=== PATIENT | female | born 1990 | race American Indian/Alaskan Native ===

== ENCOUNTER 2020-07-13 14:36 | Emergency (ER) | payer SELFPAY ==
[2020-07-13 14:52] VITALS: BP 118/73
[2020-07-13 15:39] LABS: Hematocrit 39.8 % (30.3-42.9); Hemoglobin 13.4 gm/dl (10.1-14.3); Mean Corpuscular HGB Conc 34 % (30-34); Mean Corpuscular Volume 97 fl (79-97); Platelet Count 172 K/mm3 (140-440); Red Blood Count 4.12 M/mm3 (3.65-5.03); Red Cell Distribution Width 13.5 % (13.2-15.2)
[2020-07-13 15:41] LABS: Basophils % (Auto) 0.3 % (0.0-1.8); Lymphocytes % (Auto) 5.2 % (13.4-35.0); Monocytes % (Auto) 5.9 % (0.0-7.3)
[2020-07-13 15:42] LABS: Lymphocytes # (Auto) 0.6 K/mm3 (1.2-5.4); Monocytes # (Auto) 0.7 K/mm3 (0.0-0.8)
[2020-07-13 16:00] LABS: BUN/Creatinine Ratio 17; Blood Urea Nitrogen 15 mg/dL (7-17); Calcium 9.4 mg/dL (8.4-10.2)
[2020-07-13 16:01] LABS: Alanine Aminotransferase 17 units/L (7-56); Albumin 4.3 g/dL (3.9-5); Hemolysis Index 8
[2020-07-13] MEDS ORDERED: SODIUM CHLORIDE 0.9% 1000 ML 1,000 ML IV ONE (16:41)
[2020-07-13] MEDS ORDERED: ONDANSETRON 4 MG/2 ML INJ IV ONE (16:41)
[2020-07-13] MEDS ORDERED: MORPHINE 4 MG/1 ML INJ IV ONE (16:41)
[2020-07-13] MEDS ORDERED: ACETAMINOPHEN 500 MG TAB PO ONE (16:42)
[2020-07-13 18:29] LABS: Bilirubin,Urine NEG (Negative); Blood,Urine MOD (Negative); Color,Urine Yellow (Yellow); Mucus,Urine FEW /HPF; Protein,Urine <15 mg/dL mg/dL (Negative); RBC,Urine < 1.0 /HPF (0.0-6.0); Urobilinogen,Urine < 2.0 mg/dL (<2.0); WBC,Urine < 1.0 /HPF (0.0-6.0)
[2020-07-13 18:33] LABS: HCG Qualitative,Urine Negative (Negative)
--- NOTE | 2020-07-13 18:39 | Emergency Department Report ---
ED Abdominal Pain HPI - General Chief Complaint: Abdominal Pain Stated Complaint: ABD PAIN,CHILLS,V/N Time Seen by Provider: 07/13/20 16:37 Source: patient Mode of arrival: Ambulatory Limitations: No Limitations - History of Present Illness Initial Comments: This is a 30-year-old female nontoxic, well nourished in appearance, no acute signs of distress presents to the ED with c/o of fever, chills, nausea and vomiting and abdominal pain several days. Patient describes vomiting as food content and yellow gastric acid. Patient describes abdominal pain as cramping and aching with level of 8/10 diffuse Patient denies chest pain, short of breath, hemoptysis, blood in stool, chills, headache, stiff neck, numbness or tingling. Patient denies any diarrhea or constipation. Denies any blood in stool. Denies any vaginal discharge or pelvic pain. Patient denies any recent travels. Patient stated allergies to latex. MD Complaint: abdominal pain -: days(s) Location: diffuse Radiation: none Migration to: no migration Severity: mild Severity scale (0 -10): 8 Quality: cramping, aching Consistency: constant Improves With: nothing Worsens With: nothing Associated Symptoms: nausea, vomiting, fever, chills. denies: diarrhea, constipation, dysuria, hematemesis, hematochezia, melena, hematuria, anorexia, syncope - Related Data Previous Rx's Medication Instructions Recorded Last Taken Type cephALEXin [Keflex] 500 mg PO Q8HR #21 cap 07/13/20 Unknown Rx Allergies Allergy/AdvReac Type Severity Reaction Status Date / Time latex Allergy Unknown Verified 07/13/20 14:52 ED Review of Systems ROS: Stated complaint: ABD PAIN,CHILLS,V/N Other details as noted in HPI Constitutional: chills, fever Eyes: denies: eye pain, eye discharge, vision change ENT: denies: ear pain, throat pain Respiratory: denies: cough, shortness of breath, wheezing Cardiovascular: denies: chest pain, palpitations Endocrine: no symptoms reported Gastrointestinal: abdominal pain, nausea, vomiting. denies: diarrhea Genitourinary: denies: urgency, dysuria, discharge Musculoskeletal: denies: back pain, joint swelling, arthralgia Skin: denies: rash, lesions Neurological: denies: headache, weakness, paresthesias Psychiatric: denies: anxiety, depression Hematological/Lymphatic: denies: easy bleeding, easy bruising ED Past Medical Hx - Past Medical History Previous Medical History?: No - Surgical History Past Surgical History?: No - Social History Smoking Status: Never Smoker Substance Use Type: None - Medications Home Medications: Home Medications Medication Instructions Recorded Confirmed Last Taken Type cephALEXin [Keflex] 500 mg PO Q8HR #21 cap 07/13/20 Unknown Rx ED Physical Exam - General Limitations: No Limitations General appearance: alert, in no apparent distress - Head Head exam: Present: atraumatic, normocephalic - Eye Eye exam: Present: normal appearance - Neck Neck exam: Present: normal inspection, full ROM. Absent: tenderness, meningismus, lymphadenopathy - Respiratory Respiratory exam: Present: normal lung sounds bilaterally. Absent: respiratory distress, wheezes, rales, rhonchi, stridor, chest wall tenderness, accessory muscle use, decreased breath sounds, prolonged expiratory - Cardiovascular Cardiovascular Exam: Present: regular rate, normal rhythm, tachycardia. Absent: irregular rhythm, systolic murmur, diastolic murmur, rubs, gallop - GI/Abdominal GI/Abdominal exam: Present: soft, tenderness (diffuse), normal bowel sounds. Absent: distended, guarding, rebound, rigid, diminished bowel sounds - Extremities Exam Extremities exam: Present: normal inspection, full ROM - Back Exam Back exam: Present: normal inspection, full ROM. Absent: tenderness, CVA tenderness (R), CVA tenderness (L), muscle spasm, paraspinal tenderness, vertebral tenderness, rash noted - Neurological Exam Neurological exam: Present: alert, oriented X3, normal gait - Psychiatric Psychiatric exam: Present: normal affect, normal mood - Skin Skin exam: Present: warm, dry, intact, normal color. Absent: rash ED Course Vital Signs 07/13/20 07/13/20 07/13/20 14:48 17:08 17:09 Temperature 100.4 F H Pulse Rate 102 H Respiratory 20 20 20 Rate Blood Pressure 118/73 O2 Sat by Pulse 100 Oximetry 07/13/20 07/13/20 20:08 21:15 Temperature 100.5 F H 98.5 F Pulse Rate 88 Respiratory 17 Rate Blood Pressure O2 Sat by Pulse 100 Oximetry - Reevaluation(s) Reevaluation #1: 07/13/20 18:39 Patient is speaking in full sentences with no signs of distress noted. ED Medical Decision Making - Lab Data Result diagrams: 07/13/20 15:02 07/13/20 15:02 Lab Results 07/13/20 07/13/20 07/13/20 Range/Units 15:02 15:02 16:50 WBC 12.0 H (4.5-11.0) K/mm3 RBC 4.12 (3.65-5.03) M/mm3 Hgb 13.4 (10.1-14.3) gm/dl Hct 39.8 (30.3-42.9) % MCV 97 (79-97) fl MCH 33 H (28-32) pg MCHC 34 (30-34) % RDW 13.5 (13.2-15.2) % Plt Count 172 (140-440) K/mm3 Lymph % (Auto) 5.2 L (13.4-35.0) % [place] % (Auto) 5.9 (0.0-7.3) % Eos % (Auto) 0.0 (0.0-4.3) % Baso % (Auto) 0.3 (0.0-1.8) % Lymph # (Auto) 0.6 L (1.2-5.4) K/mm3 [place] # (Auto) 0.7 (0.0-0.8) K/mm3 Eos # (Auto) 0.0 (0.0-0.4) K/mm3 Baso # (Auto) 0.0 (0.0-0.1) K/mm3 Seg Neutrophils % 88.6 H (40.0-70.0) % Seg Neutrophils # 10.6 H (1.8-7.7) K/mm3 Sodium 136 L (137-145) mmol/L Potassium 4.0 (3.6-5.0) mmol/L Chloride 100.5 (98-107) mmol/L Carbon Dioxide 22 (22-30) mmol/L Anion Gap 18 mmol/L BUN 15 (7-17) mg/dL Creatinine 0.9 (0.6-1.2) mg/dL Estimated GFR > 60 ml/min BUN/Creatinine Ratio 17 % Glucose 107 H (65-100) mg/dL Calcium 9.4 (8.4-10.2) mg/dL Total Bilirubin 0.50 (0.1-1.2) mg/dL AST 15 (5-40) units/L ALT 17 (7-56) units/L Alkaline Phosphatase 82 (35-129) units/L Total Protein 7.5 (6.3-8.2) g/dL Albumin 4.3 (3.9-5) g/dL Albumin/Globulin Ratio 1.3 % Lipase 15 (13-60) units/L Urine Color (Yellow) Urine Turbidity (Clear) Urine pH (5.0-7.0) Ur Specific [place] (1.003-1.030) Urine Protein (Negative) mg/dL Urine Glucose (UA) (Negative) mg/dL Urine Ketones (Negative) mg/dL Urine Blood (Negative) Urine Nitrite (Negative) Urine Bilirubin (Negative) Urine Urobilinogen (<2.0) mg/dL Ur Leukocyte Esterase (Negative) Urine WBC (Auto) (0.0-6.0) /HPF Urine RBC (Auto) (0.0-6.0) /HPF U Epithel Cells (Auto) (0-13.0) /HPF Urine Mucus /HPF Urine HCG, Qual (Negative) 07/13/20 Range/Units 18:18 WBC (4.5-11.0) K/mm3 RBC (3.65-5.03) M/mm3 Hgb (10.1-14.3) gm/dl Hct (30.3-42.9) % MCV (79-97) fl MCH (28-32) pg MCHC (30-34) % RDW (13.2-15.2) % Plt Count (140-440) K/mm3 Lymph % (Auto) (13.4-35.0) % [place] % (Auto) (0.0-7.3) % Eos % (Auto) (0.0-4.3) % Baso % (Auto) (0.0-1.8) % Lymph # (Auto) (1.2-5.4) K/mm3 [place] # (Auto) (0.0-0.8) K/mm3 Eos # (Auto) (0.0-0.4) K/mm3 Baso # (Auto) (0.0-0.1) K/mm3 Seg Neutrophils % (40.0-70.0) % Seg Neutrophils # (1.8-7.7) K/mm3 Sodium (137-145) mmol/L Potassium (3.6-5.0) mmol/L Chloride (98-107) mmol/L Carbon Dioxide (22-30) mmol/L Anion Gap mmol/L BUN (7-17) mg/dL Creatinine (0.6-1.2) mg/dL Estimated GFR ml/min BUN/Creatinine Ratio % Glucose (65-100) mg/dL Calcium (8.4-10.2) mg/dL Total Bilirubin (0.1-1.2) mg/dL AST (5-40) units/L ALT (7-56) units/L Alkaline Phosphatase (35-129) units/L Total Protein (6.3-8.2) g/dL Albumin (3.9-5) g/dL Albumin/Globulin Ratio % Lipase (13-60) units/L Urine Color Yellow (Yellow) Urine Turbidity Clear (Clear) Urine pH 5.0 (5.0-7.0) Ur Specific [place] 1.020 (1.003-1.030) Urine Protein <15 mg/dl (Negative) mg/dL Urine Glucose (UA) Neg (Negative) mg/dL Urine Ketones Neg (Negative) mg/dL Urine Blood Mod (Negative) Urine Nitrite Pos (Negative) Urine Bilirubin Neg (Negative) Urine Urobilinogen < 2.0 (<2.0) mg/dL Ur Leukocyte Esterase Neg (Negative) Urine WBC (Auto) < 1.0 (0.0-6.0) /HPF Urine RBC (Auto) < 1.0 (0.0-6.0) /HPF U Epithel Cells (Auto) 1.0 (0-13.0) /HPF Urine Mucus Few /HPF Urine HCG, Qual Negative (Negative) - Radiology Data Referring Physician: MARLEEN ADAMES Patient Name: SHEY GARRIDO Date of : 1990 Sex: Female Report Date: 2020-07-13 Report Status: Finalized [facility] [address] [place] [address] Cat Scan Report Signed Patient: SHEY GARRIDO MR#: [id number] 1 : 1990 Acct:[id number] Age/Sex: 30 / F ADM Date: 07/13/20 Loc: ED Attending Dr: Ordering Physician: MARLEEN ADAMES NP Date of Service: 07/13/20 Procedure(s): CT abdomen pelvis w con Accession Number(s): [id number] cc: MARLEEN ADAMES NP CT abdomen pelvis w con INDICATION / CLINICAL INFORMATION: RLQ pain with fever r/o appy. TECHNIQUE: Axial CT imaging of abdomen and pelvis was obtained with IV contrast. Coronal and sagittal reformatted imaging obtained and reviewed. All CT scans at this location are performed using CT dose reduction for ALARA by means of automated exposure control. COMPARISON: None available. FINDINGS: CT abdomen with contrast demonstrates normal appearance of the liver, spleen, pancreas, kidneys, and adrenal glands. Gallbladder is unremarkable. No biliary dilatation. CT pelvis with contrast demonstrates normal appearance of the appendix. The appendix is retrocecal and is in the mid abdomen, level of iliac crest. Dilated fluid-filled tubular structures are present in both adnexa, very suspicious for hydrosalpinges bilaterally. Tubular structures are enhancing possibly indicating infection. Small to moderate amount of free fluid is seen surrounding the uterus and both ovaries. No definite tubo-ovarian abscess at this point but over all, appearance is most suggestive for PID. GI tract is grossly unremarkable. Visualized lung bases are clear. No significant osseous abnormality IMPRESSION: 1. Normal appearance of the appendix. 2. Abnormal findings involving the pelvis. Both adnexa are prominent with enhancing dilated tubular structures present most likely representing hydrosalpinx or pyosalpinx bilaterally. Both ovaries are prominent but without definitive tubo-ovarian abscess at this time. Small to moderate amount of free fluid throughout the pelvis. Comment clinical correlation to exclude PID. Signer Name: Betzaida Cisneros MD Signed: 07/13/2020 7:13 PM Workstation Name: [id number] Transcribed By: Dictated By: Betzaida Cisneros MD Electronically Authenticated By: Betzaida Cisneros MD Signed Date/Time: 07/13/201912 DD/ 07 TD/TT: - Medical Decision Making This is a 30-year-old female that presents with abdominal pain and UTI. Patient is stable and was examined by me. Labs obtained. UA obtained. CT of abdomen obtained and dictated by the radiologist. Patient is notified of the report with no questions noted by the patient. Vital signs are stable prior to discharge. Patient received medical treatment in the ED which patient stated symptoms has resovled and subsided. Was instructed note to operate any machinery due to possible drowsiness and stated someone will drive the patient home. A by mouth challenge has been obtained and patient tolerated well with no nausea vomiting. UA is negative for leukocytes. Patient denies any suspicious of STD but due to symptoms of pain with abnormal CT results pt treated with Rocephine and AZith for possible PID. Pt received 1G rocephin and 1G azith.in the ED. Patient was notified of strict precatuions of appendictis symptoms and to return to the ED if symptoms occurs as soon as possible. Patient was also instructed to Follow- up with a primary care doctor in 3-5 days or if symptoms worsen and continue return to emergency room as soon as possible. At time of discharge, the patient does not seem toxic or ill in appearance. No acute signs of distress noted. Patient agrees to discharge treatment plan of care. No further questions noted by the patient. Critical care attestation.: If time is entered above; I have spent that time in minutes in the direct care of this critically ill patient, excluding procedure time. ED Disposition Clinical Impression: UTI (urinary tract infection) Qualifiers: Urinary tract infection type: acute cystitis Hematuria presence: with hematuria Qualified Code(s): N30.01 - Acute cystitis with hematuria Abdominal pain Qualifiers: Abdominal location: generalized Qualified Code(s): R10.84 - Generalized abdominal pain Disposition: - TO HOME OR SELFCARE Is pt being admited?: No Does the pt Need Aspirin: No Condition: Stable Instructions: Urinary Tract Infection in Women (ED), Abdominal Pain (ED) Additional Instructions: Follow-up with a primary care doctor in 3-5 days or if symptoms worsen and continue return to emergency room as soon as possible. Prescriptions: cephALEXin [Keflex] 500 mg PO Q8HR #21 cap Referrals: DENISE INGRAM MD [Primary Care Provider] - 3-5 Days JOS NOWAK MD [Staff Physician] - 3-5 Days Forms: Work/School Release Form(ED)
--- NOTE | 2020-07-13 19:17 | Cat Scan Report ---
CT abdomen pelvis w con INDICATION / CLINICAL INFORMATION: RLQ pain with fever r/o appy. TECHNIQUE: Axial CT imaging of abdomen and pelvis was obtained with IV contrast. Coronal and sagittal reformatte d imaging obtained and reviewed. All CT scans at this location are performed using CT dose reduction for ALARA by means of automated exposure control. COMPARISON: None available. FINDINGS: CT abdomen with contrast demonstrates normal appearance of the liver, spleen, pancreas, kidneys, and adrenal glands. Gallbladder is unremarkable. No biliary dilatation. CT pelvis with contrast demonstrates normal appearance of the appendix. The appendix is retrocecal an d is in the mid abdomen, level of iliac crest. Dilated fluid-filled tubular structures are present in both adnexa, very suspicious for hydrosalpinge s bilaterally. Tubular structures are enhancing possibly indicating infection. Small to moderate amou nt of free fluid is seen surrounding the uterus and both ovaries. No definite tubo-ovarian abscess at this point but overall, appearance is most suggestive for PID. GI tract is grossly unremarkable. Visualized lung bases are clear. No significant osseous abnormality IMPRESSION: 1. Normal appearance of the appendix. 2. Abnormal findings involving the pelvis. Both adnexa are prominent with enhancing dilated tubular s tructures present most likely representing hydrosalpinx or pyosalpinx bilaterally. Both ovaries are p rominent but without definitive tubo-ovarian abscess at this time. Small to moderate amount of free f luid throughout the pelvis. Comment clinical correlation to exclude PID. Signer Name: Betzaida Cisneros MD Signed: 07/13/2020 7:13 PM Workstation Name: [id number]
[2020-07-13] MEDS ORDERED: cefTRIAXone/NS 1 GM/50 ML 1 GM/50 ML BAG IV ONE (19:18)
[2020-07-13] MEDS ORDERED: AZITHROMYCIN 250 MG TAB PO ONE (20:36)
== END 2020-07-13 21:20 | disposition home or self-care (01) ==
LOC: ED 14:36
DX: N39.0 Urinary tract infection, site not specified (principal); Z79.899 Other long term (current) drug therapy; Z91.040 Latex allergy status
CPT/HCPCS: 36415; 74177; 80053; 81001; 81025; 83690; 85025; 96361; 96365; 96375; 99284; J0696; J2270; J2405; J7030; Q9967

== ENCOUNTER 2021-04-28 14:05 | Emergency (ER) | payer SELFPAY ==
[2021-04-28 14:15] VITALS: BP 138/78
[2021-04-28] MEDS ORDERED: FAMOTIDINE 20 MG/2 ML INJ IV ONE (14:15)
[2021-04-28] MEDS ORDERED: dexAMETHasone 20 MG/5 ML VIAL IV ONE (14:15)
[2021-04-28] MEDS ORDERED: diphenhydrAMINE 50 MG/ML VIAL IV ONE (14:15)
--- NOTE | 2021-04-28 14:37 | Emergency Department Report ---
ED Allergic Reaction HPI - General Chief complaint: Allergic Reaction Stated complaint: SEVERE ALLERGIC REACTION Time Seen by Provider: 04/28/21 14:15 Source: patient Mode of arrival: Ambulatory Limitations: No Limitations - History of Present Illness Initial Comments: Patient is a 30-year-old female presents emergency room with complaints of an allergic reaction that began just prior to arrival. Patient states approximately 30 to 40 minutes ago she took a fluconazole tablet. She states that she is currently being treated for yeast infection by her [employer]. She states that she has never had a medication reaction in the past. She states that she is unsure if she is ever taken this medication. She states that she has associated itching and burning all over. She denies any fever, nausea, vomiting, diarrhea, facial swelling, difficulty swallowing, difficulty breathing, sensation of throat closing. No past medical history. Allergy to latex. - Related Data Previous Rx's Medication Instructions Recorded Last Taken Type cephALEXin [Keflex] 500 mg PO Q8HR #21 cap 07/13/20 Unknown Rx Cetirizine HCl [Zyrtec 10mg tab] 10 mg PO DAILY #7 tablet 04/28/21 Unknown Rx Famotidine [Pepcid] 40 mg PO QHS #7 tablet 04/28/21 Unknown Rx Prednisone [predniSONE 10 mg 10 mg PO .TAPER #1 tab.ds.pk 04/28/21 Unknown Rx (6-Day Pack, 21 Tabs)] diphenhydrAMINE [Benadryl CAP] 25 mg PO Q6HR PRN #14 capsule 04/28/21 Unknown Rx Allergies Allergy/AdvReac Type Severity Reaction Status Date / Time latex Allergy Unknown Verified 07/13/20 14:52 ED Review of Systems ROS: Stated complaint: SEVERE ALLERGIC REACTION Other details as noted in HPI Comment: All other systems reviewed and negative ED Past Medical Hx - Past Medical History Previous Medical History?: No - Surgical History Past Surgical History?: No - Social History Smoking Status: Never Smoker Substance Use Type: None - Medications Home Medications: Home Medications Medication Instructions Recorded Confirmed Last Taken Type cephALEXin [Keflex] 500 mg PO Q8HR #21 cap 07/13/20 Unknown Rx Cetirizine HCl [Zyrtec 10mg tab] 10 mg PO DAILY #7 tablet 04/28/21 Unknown Rx Famotidine [Pepcid] 40 mg PO QHS #7 tablet 04/28/21 Unknown Rx Prednisone [predniSONE 10 mg 10 mg PO .TAPER #1 tab.ds.pk 04/28/21 Unknown Rx (6-Day Pack, 21 Tabs)] diphenhydrAMINE [Benadryl CAP] 25 mg PO Q6HR PRN #14 capsule 04/28/21 Unknown Rx ED Physical Exam - General Limitations: No Limitations General appearance: alert, in no apparent distress - Head Head exam: Present: atraumatic, normocephalic - Eye Eye exam: Present: normal appearance - ENT ENT exam: Present: normal orophraynx, mucous membranes moist, other (no angioedema) - Respiratory Respiratory exam: Present: normal lung sounds bilaterally. Absent: respiratory distress, wheezes, rales, rhonchi, stridor, chest wall tenderness, accessory muscle use, decreased breath sounds, prolonged expiratory - Cardiovascular Cardiovascular Exam: Present: regular rate, normal rhythm, normal heart sounds. Absent: systolic murmur, diastolic murmur, rubs, gallop - Neurological Exam Neurological exam: Present: alert, oriented X3 - Psychiatric Psychiatric exam: Present: normal affect, normal mood - Skin Skin exam: Present: warm, dry, rash (diffuse erythema) ED Course Vital Signs 04/28/21 14:14 Temperature 98.4 F Pulse Rate 73 Respiratory 18 Rate Blood Pressure 138/78 O2 Sat by Pulse 100 Oximetry ED Medical Decision Making - Medical Decision Making Patient is a 30-year-old female presents emergency room with complaints of an allergic reaction that began just prior to arrival. Patient states approximately 30 to 40 minutes ago she took a fluconazole tablet. She states that she is currently being treated for yeast infection by her [employer]. She states that she has never had a medication reaction in the past. She states that she is unsure if she is ever taken this medication. She states that she has associated itching and burning all over. She denies any fever, nausea, vomiting, diarrhea, facial swelling, difficulty swallowing, difficulty breathing, sensation of throat closing. No past medical history. Allergy to latex. Vitals are stable. On exam: Diffuse erythema of the skin, no obvious urticaria, no angioedema, no stridor or wheezing. Patient given medications while in the emergency department and observed without any further complications. Advised patient to update her allergies to include fluconazole. Advised patient to not take any more of the fluconazole. Patient given prescriptions for medications. Advised patient Please take medication as prescribed. Please follow-up with your [employer]. Please follow-up with a primary care doctor. Return to emergency room for any new or worsening symptoms. Critical care attestation.: If time is entered above; I have spent that time in minutes in the direct care of this critically ill patient, excluding procedure time. ED Disposition Clinical Impression: Allergic reaction Qualifiers: Encounter type: initial encounter Qualified Code(s): T78.40XA - Allergy, unspecified, initial encounter Disposition: TO HOME OR SELFCARE Is pt being admited?: No Does the pt Need Aspirin: No Condition: Stable Instructions: Allergies, Adult, [id number] Additional Instructions: Please take medication as prescribed. Please follow-up with your [employer]. Please follow-up with a primary care doctor. Return to emergency room for any new or worsening symptoms. Prescriptions: Famotidine [Pepcid] 40 mg PO QHS #7 tablet diphenhydrAMINE [Benadryl CAP] 25 mg PO Q6HR PRN #14 capsule PRN Reason: itching Prednisone [predniSONE 10 mg (6-Day Pack, 21 Tabs)] 10 mg PO .TAPER #1 tab.ds.pk Cetirizine HCl [Zyrtec 10mg tab] 10 mg PO DAILY #7 tablet Referrals: PRIMARY CARE, [Primary Care Provider] - 2-3 Days your, informaticist [Other] - 2-3 Days Time of Disposition: 16:30 Print Language: BULGARIAN
== END 2021-04-28 18:00 | disposition home or self-care (01) ==
LOC: ED 14:05
DX: T78.40XA Allergy, unspecified, initial encounter (principal); Z79.899 Other long term (current) drug therapy; Z91.040 Latex allergy status; Y93.89 Activity, other specified
CPT/HCPCS: 96374; 96375; 99282; J1100; J1200

== ENCOUNTER 2021-06-03 23:15 | Emergency (ER) | payer SELFPAY ==
--- NOTE | 2021-06-04 00:08 | XRay Report ---
CHEST 2 VIEWS INDICATION / CLINICAL INFORMATION: cp. COMPARISON: None available. FINDINGS: SUPPORT DEVICES: None. HEART / MEDIASTINUM: No significant abnormality. LUNGS / PLEURA: No significant pulmonary or pleural abnormality. No pneumothorax. ADDITIONAL FINDINGS: No significant additional findings. IMPRESSION: 1. No acute findings. Signer Name: Jamarcus Rolon MD Signed: 06/04/2021 12:04 AM Workstation Name: [id number]
[2021-06-04 00:48] LABS: Basophils % (Auto) 0.3 % (0.0-1.8); Eosinophils % (Auto) 0.3 % (0.0-4.3); Hematocrit 40.5 % (30.3-42.9); Hemoglobin 13.7 gm/dl (10.1-14.3); Mean Corpuscular HGB Conc 34 % (30-34); Mean Corpuscular Volume 96 fl (79-97); Monocytes # (Auto) 0.4 K/mm3 (0.0-0.8); Monocytes % (Auto) 6.6 % (0.0-7.3); Platelet Count 210 K/mm3 (140-440); Red Blood Count 4.24 M/mm3 (3.65-5.03); Red Cell Distribution Width 14.8 % (13.2-15.2)
[2021-06-04 01:04] LABS: Alanine Aminotransferase 20 units/L (7-56); Albumin 4.1 g/dL (3.9-5); BUN/Creatinine Ratio 11; Blood Urea Nitrogen 11 mg/dL (7-17); Calcium 8.9 mg/dL (8.4-10.2); Hemolysis Index 2
[2021-06-04 01:25] LABS: ABG Base Excess -2.6 mmol/L (-2.0-3.0); ABG HCO3 20.3 mmol/L (20.0-26.0); ABG Methemoglobin 0.4 % (0.0-1.5); ABG Oxygen Saturation 98.9 % (95.0-99.0); ABG PH 7.435 pH Units (7.350-7.450); ABG PO2 140.7 mm Hg (80.0-90.0)
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
[2021-06-04] MEDS ORDERED: ALBUTEROL 2.5 MG/3 ML NEBU IH ONE (06:12)
[2021-06-04] MEDS ORDERED: predniSONE 50 MG TAB PO STA (06:12)
[2021-06-04 08:37] VITALS: BP 112/64
--- NOTE | 2021-06-05 17:37 | Electrocardiograph Report ---
[facility] Test Date: 2021-06-04 Test Time: 00:12:02 Pat Name: SHEY GARRIDO Department: Room: Gender: F Environmental Health Specialist: PATSY : 1990 Requested By: TONYA PHILLIPS Order Number: [id number] Reading MD: Amara Arango Measurements Intervals [place] Rate: 73 P: 52 MT: 230 QRS: 41 QRSD: 80 T: 56 QT: 368 QTc: 407 Interpretive Statements Sinus rhythm Prolonged MT interval No previous ECG available for comparison Electronically Signed On 06-05-2021 17:37:35 EDT by Amara Arango
== END 2021-06-04 08:41 | disposition home or self-care (01) ==
LOC: ED 23:15
DX: T59.811A Toxic effect of smoke, accidental (unintentional), initial encounter (principal); J18.9 Pneumonia, unspecified organism; K21.9 Gastro-esophageal reflux disease without esophagitis; G43.909 Migraine, unspecified, not intractable, without status migrainosus; F17.200 Nicotine dependence, unspecified, uncomplicated; M17.0 Bilateral primary osteoarthritis of knee; Z91.040 Latex allergy status; Z88.8 Allergy status to other drugs, medicaments and biological substances; Z79.899 Other long term (current) drug therapy; X58.XXXA Exposure to other specified factors, initial encounter
CPT/HCPCS: 36415; 71046; 80053; 82375; 82803; 84484; 85025; 93005; 94640; 99283; J7512

== ENCOUNTER 2022-01-10 14:28 | Emergency (ER) | payer SELFPAY ==
--- NOTE | 2022-01-10 16:31 | Emergency Department Report ---
ED General Adult HPI - General Chief complaint: Arrhythmia/Palpitations Stated complaint: CHEST PAIN Time Seen by Provider: 01/10/22 16:05 Source: patient, EMS Mode of arrival: Stretcher Limitations: No Limitations - History of Present Illness Initial comments: Patient is 31 years old female with history of anxiety. Patient brought to the emergency room via EMS for evaluation of palpitation. Patient stated that she was very stressed with her life and having issues with her and she was using cocaine yesterday. Patient stated that she never had any symptoms like this before patient described palpitation, severe anxiety. She does not know if there is something in the drugs that she used yesterday. Patient currently denying any suicidal homicidal ideation. No visual or auditory hallucination. Patient is very tearful and she is asking for mental health evaluation. Severity scale (0 -10): 0 - Related Data Home Medications Medication Instructions Recorded Confirmed Last Taken No Known Home Medications [No 01/10/22 01/10/22 Unknown Reported Home Medications] Allergies Allergy/AdvReac Type Severity Reaction Status Date / Time latex Allergy Rash Verified 05/11/21 14:29 SOME MEDICINE FOR YEAST AdvReac Severe Rash Uncoded 05/11/21 14:53 INFECTION ED Review of Systems ROS: Stated complaint: CHEST PAIN Other details as noted in HPI Comment: All other systems reviewed and negative Constitutional: denies: chills, fever Respiratory: denies: cough, shortness of breath, SOB with exertion, SOB at rest Cardiovascular: palpitations. denies: chest pain Gastrointestinal: denies: abdominal pain, nausea, vomiting Musculoskeletal: denies: back pain Neurological: denies: headache, weakness, numbness, paresthesias, confusion, abnormal gait Psychiatric: anxiety, depression. denies: auditory hallucinations, visual hallucinations, homicidal thoughts, suicidal thoughts ED Past Medical Hx - Past Medical History Hx Diabetes: No Hx GERD: Yes Hx Sickle Cell Disease: No Hx Arthritis: Yes (LT KNEE) Hx Headaches / Migraines: Yes (MIGRAINES) Hx Kidney Stones: No Hx Tuberculosis: No Hx HIV: No - Social History Smoking Status: Current Every Day Smoker - Medications Home Medications: Home Medications Medication Instructions Recorded Confirmed Last Taken Type No Known Home Medications [No 01/10/22 01/10/22 Unknown History Reported Home Medications] ED Physical Exam - General Limitations: No Limitations General appearance: alert, in no apparent distress, anxious - Head Head exam: Present: atraumatic, normocephalic, normal inspection - Eye Eye exam: Present: normal appearance - ENT ENT exam: Present: normal exam, normal orophraynx, mucous membranes moist - Neck Neck exam: Present: normal inspection, full ROM. Absent: tenderness, meningismus - Respiratory Respiratory exam: Present: normal lung sounds bilaterally - Cardiovascular Cardiovascular Exam: Present: regular rate, normal rhythm, normal heart sounds - GI/Abdominal GI/Abdominal exam: Present: soft, normal bowel sounds. Absent: distended, tenderness, guarding, rebound, rigid, organomegaly, mass, bruit, pulsatile mass, hernia - Extremities Exam Extremities exam: Present: normal inspection, full ROM, normal capillary refill. Absent: tenderness, pedal edema, joint swelling, calf tenderness - Back Exam Back exam: Present: normal inspection, full ROM. Absent: CVA tenderness (R), CVA tenderness (L) - Neurological Exam Neurological exam: Present: alert, oriented X3, CN II-XII intact, normal gait, reflexes normal. Absent: motor sensory deficit - Psychiatric Psychiatric exam: Present: anxious. Absent: manic, homicidal ideation, suicidal ideation - Skin Skin exam: Present: warm, intact, normal color ED Course Vital Signs 01/10/22 01/10/22 01/10/22 14:39 15:55 17:00 Pulse Rate 110 H 80 76 Respiratory 18 16 16 Rate Blood Pressure 156/86 138/82 116/89 [Left] O2 Sat by Pulse 98 100 99 Oximetry ED Medical Decision Making - Lab Data Result diagrams: 01/10/22 16:55 01/10/22 16:55 - EKG Data -: EKG Interpreted by Ut EKG shows normal: sinus rhythm Rate: normal - EKG Data Interpretation: no acute changes - Radiology Data Radiology results: report reviewed - Medical Decision Making Patient is 31 years old female with history of anxiety. Patient brought to the emergency room via EMS for evaluation of palpitation. Patient stated that she was very stressed with her life and having issues with her and she was using cocaine yesterday. Patient stated that she never had any symptoms like this before patient described palpitation, severe anxiety. She does not know if there is something in the drugs that she used yesterday. Patient currently denying any suicidal homicidal ideation. No visual or auditory hallucination. Patient is very tearful and she is asking for mental health evaluation. Labs reviewed and is unremarkable. Chest x-ray is negative for acute finding. Patient has been evaluated by mental health and recommended outpatient treatment. Patient still denying any suicidal homicidal ideation. No visual or auditory hallucination. Patient is medically and psychiatrically stable for discharge. Patient advised to follow-up with her primary doctor in the next 2 to 3 days and to return to the ER if he develop any new symptoms. Critical care attestation.: If time is entered above; I have spent that time in minutes in the direct care of this critically ill patient, excluding procedure time. ED Disposition Clinical Impression: Palpitation, Cocaine abuse Disposition: HOME / SELF CARE / HOMELESS Is pt being admited?: No Condition: Stable Instructions: Palpitations, Substance Use Disorder Additional Instructions: In case of an emergency, please contact the following numbers: ID Crisis and Access Line: Number: Crisis Text Line: (Text START) Number: [phone] Suicide Prevention Line: Number: Emergency Number: 911 SUBSTANCE ABUSE PROGRAMS: Sober Living [place]: Location: [place], [place] [employer] Address: [address] [place] [address] [facility] Recovery: Address: [address] [place] [address] [facility] Adult Rehabilitation: Address: [address] [place] [id number] [facility] Community: Address: [address] [place] [address] Professional and Agency Contacts To help Resolve Crises (12/05) ID Crisis Line: Suicide Prevention Line: Crisis Text Line: Text START to [phone] Emergency: 911 Outpatient COMMUNITY Behavioral Health Resources: LUIS: [facility] [address] [place] [address] Friday thru Friday - 8am - 5pm Call to schedule an assessment for mental health and substance abuse programs Referrals: PRIMARY CAREMD [Primary Care Provider] - 3-5 Days
[2022-01-10 17:08] LABS: Basophils # (Auto) 0.1 K/mm3 (0.0-0.1); Basophils % (Auto) 0.6 % (0.0-1.8); Eosinophils % (Auto) 0.1 % (0.0-4.3); Lymphocytes % (Auto) 17.7 % (13.4-35.0); Monocytes # (Auto) 0.8 K/mm3 (0.0-0.8); Monocytes % (Auto) 6.7 % (0.0-7.3)
[2022-01-10 17:11] LABS: Hematocrit 43.3 % (30.3-42.9); Hemoglobin 14.3 gm/dl (10.1-14.3); Mean Corpuscular HGB Conc 33 % (30-34); Mean Corpuscular Volume 99 fl (79-97); Platelet Count 172 K/mm3 (140-440); Red Blood Count 4.37 M/mm3 (3.65-5.03); Red Cell Distribution Width 13.8 % (13.2-15.2)
[2022-01-10 17:31] LABS: Alanine Aminotransferase 20 units/L (7-56); Albumin 4.3 g/dL (3.9-5); Blood Urea Nitrogen 11 mg/dL (7-17); Calcium 9.5 mg/dL (8.4-10.2); Hemolysis Index 9
[2022-01-10 17:46] LABS: BUN/Creatinine Ratio 16
--- NOTE | 2022-01-10 18:18 | XRay Report ---
CHEST 2 VIEWS INDICATION: Chest Pain. COMPARISON: 06/03/2021 FINDINGS: SUPPORT DEVICES: None. HEART: Within normal limits. LUNGS/PLEURA: No acute air space or interstitial disease. No pneumothorax. ADDITIONAL FINDINGS: None. IMPRESSION: 1. No acute findings. Signer Name: Rhett Smith MD Signed: 01/10/2022 6:14 PM Workstation Name: [id number]
[2022-01-10 22:08] VITALS: BP 112/61
--- NOTE | 2022-01-11 08:09 | Electrocardiograph Report ---
[facility] Test Date: 2022-01-10 Test Time: 16:30:42 Pat Name: SHEY GARRIDO Department: Room: Gender: F Director Medical Affairs: FREDDY : 1990 Requested By: NORBERT CHÁVEZ Order Number: [id number] Reading MD: Robert Brownlee Measurements Intervals [place] Rate: 76 P: 76 AR: 194 QRS: 34 QRSD: 92 T: 33 QT: 370 QTc: 415 Interpretive Statements Sinus rhythm Compared to ECG 06/04/2021 00:12:02 First degree AV block no longer present Electronically Signed On 01-11-2022 8:09:38 EDT by Robert Brownlee
== END 2022-01-10 22:08 | disposition home or self-care (01) ==
LOC: ED 14:28
DX: R00.2 Palpitations (principal); F14.10 Cocaine abuse, uncomplicated; K21.9 Gastro-esophageal reflux disease without esophagitis; G43.909 Migraine, unspecified, not intractable, without status migrainosus; M19.90 Unspecified osteoarthritis, unspecified site; F17.200 Nicotine dependence, unspecified, uncomplicated; Z91.040 Latex allergy status; Z79.899 Other long term (current) drug therapy
CPT/HCPCS: 36415; 71046; 80053; 83735; 84443; 84484; 84703; 85025; 93005; 99285

== ENCOUNTER 2022-04-17 03:16 | Emergency (ER) | payer SELFPAY ==
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
--- NOTE | 2022-04-17 07:20 | Emergency Department Report ---
ED Fall HPI - General Chief Complaint: Extremity Injury, Lower Stated Complaint: RT LEG SWELLING Time Seen by Provider: 04/17/22 07:04 Source: patient Mode of arrival: Ambulatory - History of Present Illness Initial Comments: 31-year-old black female with no past medical history presents to the emergency department for evaluation of right lower leg pain. She states that she fell 3 weeks ago and hit her right lower leg and has had pain and swelling to the area since then. She states that pain is 8 out of 10 and worse with ambulation. She states that she has not taken any medications for her symptoms. MD Complaint: fall -: Gradual, week(s) (3) Fall From: standing When Fall Occurred: # days [employer] (21) Fall Witnessed: yes, by family Place Fall Occurred: home Loss of Consciousness: none Symptoms Prior to Fall: none Severity: severe Severity scale (0 -10): 8 Quality: aching Context: tripped/slipped Associated Symptoms: denies - Related Data Home Medications Medication Instructions Recorded Confirmed Last Taken No Known Home Medications [No 04/17/22 04/17/22 Unknown Reported Home Medications] Allergies Allergy/AdvReac Type Severity Reaction Status Date / Time latex Allergy Rash Verified 04/17/22 07:23 SOME MEDICINE FOR YEAST AdvReac Severe Rash Uncoded 04/17/22 07:23 INFECTION ED Review of Systems ROS: Stated complaint: RT LEG SWELLING Other details as noted in HPI Comment: All other systems reviewed and negative Constitutional: denies: chills, fever Eyes: denies: vision change Respiratory: denies: shortness of breath Cardiovascular: denies: chest pain Gastrointestinal: denies: abdominal pain, nausea, vomiting Neurological: denies: headache, weakness ED Past Medical Hx - Past Medical History Hx Diabetes: No Hx GERD: Yes Hx Sickle Cell Disease: No Hx Arthritis: Yes (LT KNEE) Hx Headaches / Migraines: Yes (MIGRAINES) Hx Kidney Stones: No Hx Tuberculosis: No Hx HIV: No - Social History Smoking Status: Current Every Day Smoker - Medications Home Medications: Home Medications Medication Instructions Recorded Confirmed Last Taken Type No Known Home Medications [No 04/17/22 04/17/22 Unknown History Reported Home Medications] ED Physical Exam - General Limitations: No Limitations General appearance: alert, in no apparent distress - Head Head exam: Present: atraumatic, normocephalic - Eye Eye exam: Present: normal appearance. Absent: conjunctival injection, periorbital swelling, periorbital tenderness - Neck Neck exam: Present: normal inspection - Respiratory Respiratory exam: Absent: respiratory distress - Cardiovascular Cardiovascular Exam: Present: regular rate - GI/Abdominal GI/Abdominal exam: Absent: distended - Extremities Exam Extremities exam: Absent: normal inspection - Expanded Lower Extremity Exam Right Upper Leg exam: Present: normal inspection Knee exam: Present: normal inspection Lower Leg exam: Present: full ROM, tenderness, swelling. Absent: normal inspection, abrasion, ecchymosis, deformity, erythema Ankle exam: Present: full ROM, tenderness, swelling. Absent: erythema Foot/Toe exam: Present: normal inspection Neuro vascular tendon exam: Present: no vascular compromise. Absent: pulse deficit, abnormal cap refill, extremity cold to touch, pallor Gait: Positive: observed and normal - Back Exam Back exam: Present: normal inspection - Neurological Exam Neurological exam: Present: alert, oriented X3 - Psychiatric Psychiatric exam: Present: normal affect, normal mood - Skin Skin exam: Present: warm, dry, intact, normal color ED Course Vital Signs 04/17/22 04/17/22 03:36 07:20 Temperature 98.6 F 98.0 F Pulse Rate 67 56 L Respiratory 18 18 Rate Blood Pressure 116/79 Blood Pressure 113/76 [Left] O2 Sat by Pulse 100 100 Oximetry ED Medical Decision Making - Radiology Data Radiology results: report reviewed, image reviewed Right tib-fib x-ray: FINDINGS: BONES / JOINT(S): No acute fracture or subluxation. No significant arthritis. SOFT TISSUES: No significant abnormality. ADDITIONAL FINDINGS: None. - Medical Decision Making 31-year-old black female with no past medical history presents to the emergency department for evaluation of right lower leg pain. She states that she fell 3 weeks ago and hit her right lower leg and has had pain and swelling to the area since then. She states that pain is 8 out of 10 and worse with ambulation. She states that she has not taken any medications for her symptoms. Patient noted to have tenderness and swelling to the right lower extremity on exam. Right tib-fib x-ray without any acute abnormalities noted. Patient will be treated with 7-day course of naproxen and advised to follow-up with her primary care provider or orthopedics if no improvement or worsening symptoms. She is advised to return to the emergency department as needed. She verbalizes understanding of and agreement with plan of care. Critical care attestation.: If time is entered above; I have spent that time in minutes in the direct care of this critically ill patient, excluding procedure time. ED Disposition Clinical Impression: Pain and swelling of right lower leg Fall Qualifiers: Encounter type: initial encounter Qualified Code(s): W19.XXXA - Unspecified fall, initial encounter Disposition: HOME / SELF CARE / HOMELESS Is pt being admited?: No Does the pt Need Aspirin: No Condition: Stable Instructions: How to Use Cold Therapy, [id number], Musculoskeletal Pain Additional Instructions: Take medications as prescribed. Follow up with your primary care provider or orthopedics if no improvement. Return to ED as needed. Referrals: JOS NOWAK MD [Primary Care Provider] - 3-5 Days GINA BENITO MD [Staff Physician] - 3-5 Days Forms: Work/School Release Form(ED) Time of Disposition: 07:20
[2022-04-17 07:21] VITALS: BP 113/76
== END 2022-04-17 07:55 | disposition home or self-care (01) ==
LOC: ED 03:16
DX: M79.661 Pain in right lower leg (principal); W19.XXXA Unspecified fall, initial encounter; Z91.040 Latex allergy status; F17.200 Nicotine dependence, unspecified, uncomplicated; Y93.89 Activity, other specified; Y92.89 Other specified places as the place of occurrence of the external cause; Y99.8 Other external cause status
CPT/HCPCS: 99283

== ENCOUNTER 2022-07-01 16:45 | Emergency (ER) | payer SELFPAY ==
[2022-07-01 21:30] VITALS: BP 121/85
--- NOTE | 2022-07-01 22:19 | Emergency Department Report ---
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 Has been experiencing fever sensations cough, congestion, mucus production, muscle aches, headache, sore throat -: Gradual Radiation: non-radiation Quality: dull Associated Symptoms: cough, headaches, malaise - Related Data Previous Rx's Medication Instructions Recorded Last Taken Type Azithromycin [Zithromax TAB] 500 mg PO QDAY #3 07/01/22 Unknown Rx Benzonatate [Tessalon Perles] 100 mg PO Q8HR #20 cap 07/01/22 Unknown Rx Allergies Allergy/AdvReac Type Severity Reaction Status Date / Time latex Allergy Rash Verified 04/17/22 07:23 SOME MEDICINE FOR YEAST AdvReac Severe Rash Uncoded 04/17/22 07:23 INFECTION ED Review of Systems ROS: Stated complaint: COVID SX Other details as noted in HPI Comment: All other systems reviewed and negative ED Past Medical Hx - Past Medical History Hx Diabetes: No Hx GERD: Yes Hx Sickle Cell Disease: No Hx Arthritis: Yes (LT KNEE) Hx Headaches / Migraines: Yes (MIGRAINES) Hx Kidney Stones: No Hx Tuberculosis: No Hx HIV: No - Social History Smoking Status: Current Every Day Smoker - Medications Home Medications: Home Medications Medication Instructions Recorded Confirmed Last Taken Type Azithromycin [Zithromax TAB] 500 mg PO QDAY #3 07/01/22 Unknown Rx Benzonatate [Tessalon Perles] 100 mg PO Q8HR #20 cap 07/01/22 Unknown Rx ED Physical Exam - General Limitations: No Limitations General appearance: alert, in no apparent distress - Head Head exam: Present: atraumatic, normocephalic - Eye Eye exam: Present: normal appearance, PERRL, EOMI. Absent: scleral icterus, conjunctival injection Pupils: Present: normal accommodation - ENT ENT exam: Present: mucous membranes moist, other (Nasal congestion bilaterally and pharynx red with posterior nasal drip.). Absent: normal orophraynx - Neck Neck exam: Present: normal inspection - Respiratory Respiratory exam: Present: normal lung sounds bilaterally. Absent: respiratory distress - Cardiovascular Cardiovascular Exam: Present: regular rate, normal rhythm. Absent: systolic murmur, diastolic murmur, rubs, gallop - GI/Abdominal GI/Abdominal exam: Present: soft, normal bowel sounds - Extremities Exam Extremities exam: Present: normal inspection - Back Exam Back exam: Present: normal inspection - Neurological Exam Neurological exam: Present: alert, oriented X3 - Psychiatric Psychiatric exam: Present: normal affect, normal mood - Skin Skin exam: Present: warm, dry, intact, normal color. Absent: rash ED Course Vital Signs 07/01/22 21:23 Temperature 98.5 F Pulse Rate 64 Respiratory 15 Rate Blood Pressure 121/85 [Right] O2 Sat by Pulse 100 Oximetry ED Medical Decision Making - Medical Decision Making This patient presents to the emergency department with fever and lower respiratory symptoms concerning for viral syndrome including flu and COVID-19. Patient has suspicion and is for COVID-19 infection. Differential diagnosis includes other viral causes of lower respiratory symptoms, pneumonia, asthma, bronchitis. Patient is well-appearing with acceptable vitals, lacks comorbidities admission and a reassuring physical examination and is safe to be discharged home nasal swab for COVID testing is recommended. Provide strict return precautions and instructions on self isolation/quarantine and anticipatory guidance. Critical care attestation.: If time is entered above; I have spent that time in minutes in the direct care of this critically ill patient, excluding procedure time. ED Disposition Clinical Impression: URI (upper respiratory infection) Disposition: HOME / SELF CARE / HOMELESS Is pt being admited?: No Does the pt Need Aspirin: No Condition: Stable Instructions: Cough, Adult, [id number], Cough, Adult, Cool Mist Vaporizer, Upper Respiratory Infection, Adult, COVID-19 Prescriptions: Benzonatate [Tessalon Perles] 100 mg PO Q8HR #20 cap Azithromycin [Zithromax TAB] 500 mg PO QDAY #3 Referrals: PRIMARY CARE, [Primary Care Provider] - 3-5 Days
== END 2022-07-02 00:23 | disposition home or self-care (01) ==
LOC: ED 16:45
DX: J06.9 Acute upper respiratory infection, unspecified (principal); K21.9 Gastro-esophageal reflux disease without esophagitis; M19.90 Unspecified osteoarthritis, unspecified site; G43.909 Migraine, unspecified, not intractable, without status migrainosus; F17.200 Nicotine dependence, unspecified, uncomplicated; Z91.040 Latex allergy status; Z91.09 Other allergy status, other than to drugs and biological substances
CPT/HCPCS: 99282